=== PATIENT | female | born 1990 | race Two or more races ===

== ENCOUNTER 2017-06-30 04:27 | Inpatient (IN) | payer BC ==
[~2017-06-30] VITALS: Ht 167.6 cm; Wt 97.3 kg
[2017-06-30] MEDS ORDERED: PREDNISONE 20MG TABLET PO ONE (07:30)
[2017-06-30] MEDS ORDERED: DIPHENHYDRAMINE 25MG CAPSULE PO ONE (07:30)
[2017-06-30] MEDS ORDERED: FAMOTIDINE 20MG TABLET PO ONE (07:30)
[2017-06-30] MEDS ORDERED: SODIUM CHLORIDE 0.9% 1,000 ML IV ONE (08:07)
[2017-06-30 08:49] LABS: CHLORIDE 102 mEq/L (98-107)
[2017-06-30 08:50] LABS: HEMOGLOBIN. 12.1 g/dL (12.0-16.0); MEAN CORPUSCULAR HEMOGLOBIN 29.6 pg (28.0-32.0); MEAN CORPUSCULAR VOLUME 87.7 fL (81.0-99.0); MEAN PLATELET VOLUME 8.1 fl (7.4-10.4); PLATELET 180 x1000/uL (130-400); RED CELL DISTRIBUTION WIDTH 13.8 % (11.6-14.6)
[2017-06-30 08:51] LABS: INR 1.1; PROTHROMBIN TIME 11.6 sec (9.4-11.6)
[2017-06-30 09:31] LABS: KETONES URINE NEGATIVE (NEGATIVE); LEUKOCYTE ESTERASE URINE TRACE (NEGATIVE); NITRITE URINE NEGATIVE (NEGATIVE); OCCULT BLOOD URINE NEGATIVE (NEGATIVE); PROTEIN URINE NEGATIVE (NEGATIVE); SPECIFIC GRAVITY URINE 1.006 (1.005-1.030); UROBILINOGEN URINE 0.2 E.U./dL (0.2-1.0)
[2017-06-30 09:34] LABS: CLARITY URINE CLEAR (CLEAR); COLOR URINE PALE YELLOW (YELLOW)
[2017-06-30 10:12] LABS: PLATELET ESTIMATE NORMAL
[2017-06-30] MEDS ORDERED: ACETAMINOPHEN 650MG/20.3ML UDC GT PRN ×2 (11:30→17:15)
[2017-06-30] MEDS ORDERED: MAGNESIUM/ALUMINUM HYDROXIDE/SIMETHICONE 30ML UDC PO PRN ×2 (11:30→17:15)
[2017-06-30] MEDS ORDERED: ONDANSETRON HCL 4MG/2ML VIAL IV PRN ×2 (11:30→17:15)
[2017-06-30] MEDS ORDERED: GUAIFENESIN 200MG/10ML SUGAR FREE UDC PO PRN ×2 (11:30→17:15)
[2017-06-30] MEDS ORDERED: HYDROCODONE/ACETAMINOPHEN 10/325MG TABLET PO PRN ×2 (11:30→17:15)
[2017-06-30] MEDS ORDERED: LORAZEPAM 0.5MG TABLET PO PRN ×2 (11:30→17:15)
[2017-06-30] MEDS ORDERED: DOCUSATE SODIUM 100MG CAPSULE PO PRN ×2 (11:30→17:15)
[2017-06-30] MEDS ORDERED: ACETAMINOPHEN 650MG SUPP PR PRN ×2 (11:30→17:15)
[2017-06-30] MEDS ORDERED: CLONIDINE 0.1MG TABLET PO PRN ×2 (11:30→17:15)
[2017-06-30] MEDS ORDERED: ACETAMINOPHEN 325MG TABLET PO PRN ×2 (11:30→17:15)
[2017-06-30] MEDS ORDERED: HYDROCODONE/ACETAMINOPHEN 5/325MG TABLET PO PRN ×2 (11:30→17:15)
[2017-06-30] MEDS ORDERED: DIPHENHYDRAMINE 50MG/ML VIAL IV PRN ×2 (11:30→17:15)
[2017-06-30] MEDS ORDERED: VANCOMYCIN 750 MG PREMIX 150 ML IV SCH (13:30)
[2017-06-30 14:35] LABS: T4 FREE 1.21 ng/dL (0.76-1.46)
[2017-06-30] MEDS ORDERED: NA PHOS,M-B/NA PHOS,DI-BA ENEMA 118ML PR PRN ×2 (17:15→21:00)
[2017-06-30] MEDS ORDERED: DEXT 5%/0.45% NACL 1000ML 1,000 ML IV ONE (17:30)
[2017-06-30 18:37] LABS: HCG SCREEN NEGATIVE
[2017-06-30 19:21] LABS: HEMATOCRIT. 35.9 % (36.0-48.0); HEMOGLOBIN. 12.4 g/dL (12.0-16.0); MEAN CORPUSCULAR HEMOGLOBIN 30.2 pg (28.0-32.0); MEAN CORPUSCULAR VOLUME 87.1 fL (81.0-99.0); PLATELET 208 x1000/uL (130-400); RED BLOOD CELL COUNT 4.12 mill/uL (4.2-5.4); RED CELL DISTRIBUTION WIDTH 13.8 % (11.6-14.6)
[2017-06-30 20:52] LABS: ATYPICAL LYMPHOCYTES 2; PLATELET ESTIMATE NORMAL
[2017-06-30 22:01] VITALS: BP 123/94
[2017-07-01 09:40] LABS: *AMPHETAMINES SCREEN URINE NEGATIVE (NEGATIVE); *BARBITURATES SCREEN URINE NEGATIVE (NEGATIVE); *BENZODIAZEPINES SCREEN URINE NEGATIVE (NEGATIVE)
[2017-07-01 09:41] LABS: *COCAINE SCREEN URINE NEGATIVE (NEGATIVE); CANNABINOID URINE SCREEN NEGATIVE (NEGATIVE); METHADONE URINE SCREEN NEGATIVE (NEGATIVE); OPIATES URINE SCREEN NEGATIVE (NEGATIVE); PHENCYCLIDINE URINE SCREEN NEGATIVE (NEGATIVE)
[2017-07-02 13:09] LABS: MUMPS IGG ANTIBODY 99.7 AU/mL (Immune >10.9); RUBEOLA AB IGG 55.3 AU/mL (Immune >29.9)
[2017-07-04 04:13] LABS: BARBITURATE SCREEN Negative ug/mL (Cutoff:0.1); BENZODIAZEPINE SCREEN Negative ng/mL (Cutoff:20); OPIATES SCREEN Negative ng/mL (Cutoff:5); PHENCYCLIDINE SCREEN Negative ng/mL (Cutoff:8)
== END 2017-06-30 23:30 | disposition left against medical advice (07) | DRG 866 ==
LOC: ER 04:27 → EDBEDREQTM 14:18 → EDBEDREQSVC 14:18 → 6EST 14:18 → EDBEDREQ 14:18 → EDBEDREQSVC 19:39 → ENRESERV 20:52
PROVIDERS: ADMIT Internal Medicine; ATTEND Internal Medicine
DX: B34.9 Viral infection, unspecified (principal); D72.819 Decreased white blood cell count, unspecified; R21 Rash and other nonspecific skin eruption; Z53.21 Procedure and treatment not carried out due to patient leaving prior to being seen by health care provider; Z79.899 Other long term (current) drug therapy; Z91.010 Allergy to peanuts; Z91.018 Allergy to other foods
CPT/HCPCS: 36415; 71045; 80053; 80305; 80307; 81003; 83605; 83690; 84439; 84443; 84481; 84703; 85007; 85025; 85027; 85610; 86592; 86735; 86762; 86765; 87040; 87077; 87086; 87186; 93005; 96360; 99285; J3370; J7030; J7512; Q0163

== ENCOUNTER 2017-12-26 18:17 | Emergency (ER) | payer BC, MEDICAID ==
[~2017-12-26] VITALS: Ht 165.1 cm; Wt 74.0 kg
[2017-12-26 20:51] LABS: CLARITY URINE CLEAR (CLEAR); COLOR URINE YELLOW (YELLOW); KETONES URINE NEGATIVE (NEGATIVE); LEUKOCYTE ESTERASE URINE NEGATIVE (NEGATIVE); NITRITE URINE NEGATIVE (NEGATIVE); OCCULT BLOOD URINE 3+ (NEGATIVE); PROTEIN URINE NEGATIVE (NEGATIVE); SPECIFIC GRAVITY URINE 1.001 (1.005-1.030); UROBILINOGEN URINE 0.2 E.U./dL (0.2-1.0)
[2017-12-26 21:23] LABS: *AMPHETAMINES SCREEN URINE NEGATIVE (NEGATIVE); *BARBITURATES SCREEN URINE NEGATIVE (NEGATIVE); *BENZODIAZEPINES SCREEN URINE NEGATIVE (NEGATIVE); *COCAINE SCREEN URINE NEGATIVE (NEGATIVE)
[2017-12-26 21:24] LABS: CANNABINOID URINE SCREEN NEGATIVE (NEGATIVE); METHADONE URINE SCREEN NEGATIVE (NEGATIVE); OPIATES URINE SCREEN NEGATIVE (NEGATIVE); PHENCYCLIDINE URINE SCREEN NEGATIVE (NEGATIVE)
[2017-12-26 22:11] LABS: BASOPHILS % 0.7 % (0.0-2.0); EOSINOPHILS % 2.6 % (0.0-5.0); HEMATOCRIT. 32.8 % (36.0-48.0); HEMOGLOBIN. 10.9 g/dL (12.0-16.0); LYMPHOCYTES % 30.8 % (20.0-50.0); MEAN CORPUSCULAR HEMOGLOBIN 29.7 pg (28.0-32.0); MEAN CORPUSCULAR VOLUME 89.4 fL (81.0-99.0); NEUTROPHILS % 58.9 % (40.0-76.0); PLATELET 232 x1000/uL (130-400); RED BLOOD CELL COUNT 3.67 mill/uL (4.2-5.4); RED CELL DISTRIBUTION WIDTH 14.3 % (11.6-14.6)
[2017-12-26 22:16] LABS: HCG SCREEN NEGATIVE
[2017-12-26 22:21] LABS: CHLORIDE 108 mEq/L (98-107)
[2017-12-26 22:25] LABS: ETHANOL BLOOD < 10 mg/dL
[2017-12-26] MEDS ORDERED: OLANZAPINE 10MG TABLET PO SCH (22:30)
[2017-12-27 09:10] VITALS: BP 125/68
== END 2017-12-27 09:13 | disposition home or self-care (01) ==
LOC: ER 18:17
DX: F32.9 Major depressive disorder, single episode, unspecified (principal); F41.9 Anxiety disorder, unspecified; R44.0 Auditory hallucinations; D64.9 Anemia, unspecified; R03.0 Elevated blood-pressure reading, without diagnosis of hypertension; R31.9 Hematuria, unspecified; Z98.890 Other specified postprocedural states; Z91.010 Allergy to peanuts; Z91.013 Allergy to seafood; Z59.0 Homelessness
CPT/HCPCS: 36415; 80053; 80305; 80307; 80329; 81003; 81025; 84443; 84703; 85025; 93005; 99285; G0482

== ENCOUNTER 2018-09-24 15:02 | Emergency (ER) | payer MEDICAID ==
[~2018-09-24] VITALS: Ht 167.6 cm; Wt 110.0 kg
[2018-09-24 15:08] VITALS: BP 150/88
== END 2018-09-24 17:21 | disposition left against medical advice (07) ==
LOC: ER 15:02
DX: Z53.21 Procedure and treatment not carried out due to patient leaving prior to being seen by health care provider (principal)